=== PATIENT | female | born 2005 | race Caucasian/White ===

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

== ENCOUNTER 2024-03-18 13:45 | Inpatient (IN) | payer OTHER ==
[~2024-03-18] VITALS: Ht 157.5 cm; Wt 68.9 kg
[2024-03-24] VITALS (9 sets, daily range): BP systolic 114–139; BP diastolic 60–84
[2024-03-24] MEDS ORDERED: RINGERS SOLUTION,LACTATED 1,000 ML IV SCH (13:15)
[2024-03-24] MEDS ORDERED: PRENATAL 19 CH1 EACH PO (13:43)
[2024-03-24] MEDS ORDERED: OXYTOCIN 500 ML IV ONE (13:45)
[2024-03-24 14:05] LABS: HEMATOCRIT 35.5 % (36.0-45.00); HEMOGLOBIN 11.8 g/dL (12.0-15.00); MEAN CORPUSCULAR HEMOGLOBIN 29.2 pg (27.00-32.0); MEAN CORPUSCULAR HGB CONC 33.2 g/dl (32.0-36.0); PLATELET COUNT 337 K/uL (150-450); RED BLOOD COUNT 4.03 M/uL (4.00-6.00); RED CELL DISTRIBUTION WIDTH 14.7 % (11.5-14.5)
[2024-03-24] MEDS ORDERED: ERYTHROMYCIN BASE OPHT 1GM EACH TUBE OP ONE ×2 (14:39→18:15)
[2024-03-24] MEDS ORDERED: OXYTOCIN 20 UNITS/1000ML RL PIGGYBAG IV ONE (14:40)
[2024-03-24] MEDS ORDERED: CHLORHEXIDINE GLUCONATE 120 ML BOTTLE TOP ONE ×2 (14:40→18:15)
[2024-03-24] MEDS ORDERED: LIDOCAINE HCL 1% 10ML VIAL ONE (14:40)
[2024-03-24 14:46] LABS: BILIRUBIN TOTAL 0.54 mg/dL (0.3-1.2); CALCIUM 9.7 mg/dL (8.5-10.1); CREATININE SERUM 0.61 mg/dL (0.55-1.02); GFR 126.35; GLOBULINA 3.8 G/DL (2.4-3.5); INR < 0.93; PARTIAL THROMBOPLASTIN TIME 26.2 SECONDS (22.0-34.0); POTASSIUM 4.27 mEq/L (3.5-5.1); PROTHROMBIN TIME 10.2 SECONDS (9.0-11.5); TOTAL PROTEIN 6.8 gm/dL (6.4-8.2)
[2024-03-24] MEDS ORDERED: OxyCODONE HCL/APAP UD (PERCOCET) PO PRN (17:00)
[2024-03-24] MEDS ORDERED: IBUprofen 400 MG TABLET PO PRN (17:00)
[2024-03-24] MEDS ORDERED: OXYTOCIN 1,000 ML IV SCH (17:00)
[2024-03-24] MEDS ORDERED: LIDOCAINE HCL 1% 10ML VIAL PERCUT ONE (18:15)
[2024-03-25 01:18] VITALS: BP 107/68
[2024-03-25 08:42] VITALS: BP 123/75
[2024-03-25 15:47] VITALS: BP 104/65
[2024-03-25 23:32] VITALS: BP 95/54
[2024-03-26 04:53] VITALS: BP 98/58
== END 2024-03-26 11:49 | disposition home or self-care (01) | DRG 807 ==
LOC: LDR 03-24 13:02 → OB/GYN 03-24 13:02 → SURG 03-24 13:45 → OB/GYN 03-24 17:02
PROVIDERS: Obstetrics & Gynecology; ADMIT Obstetrics & Gynecology; ATTEND Obstetrics & Gynecology
PROC: 10E0XZZ Delivery of Products of Conception, External Approach (ICD-10-PCS; principal; 2024-03-24)
PROC: 0UQG7ZZ Repair Vagina, Via Natural or Artificial Opening (ICD-10-PCS; 2024-03-24)
PROC: 4A1HXCZ Monitoring of Products of Conception, Cardiac Rate, External Approach (ICD-10-PCS; 2024-03-24)
DX: O71.4 Obstetric high vaginal laceration alone (principal); Z37.0 Single live birth; Z3A.40 40 weeks gestation of pregnancy

== ENCOUNTER → 2024-03-19 | Outpatient (CLI) | payer OTHER | END | disposition home or self-care (01) | LOC: NST 14:35 | PROVIDERS: ATTEND Obstetrics & Gynecology Maternal & Fetal Medicine | DX: Z34.83 Encounter for supervision of other normal pregnancy, third trimester (principal) ==

== ENCOUNTER 2024-03-23 12:20 | Outpatient (CLI) | payer OTHER ==
[2024-03-24] MEDS ORDERED: PRENATAL 19 CH1 EACH PO (13:43)
== END 2024-03-23 13:12 | disposition home or self-care (01) ==
LOC: NST 12:20
PROVIDERS: ATTEND Obstetrics & Gynecology Maternal & Fetal Medicine
DX: Z3A.39 39 weeks gestation of pregnancy (principal)

== ENCOUNTER 2025-01-27 15:08 | Outpatient (CLI) | payer OTHER ==
[~2025-01-27 15:08] MED LIST: PRENATAL 19 CH1 EACH PO
== END 2025-01-27 15:10 | disposition home or self-care (01) ==
LOC: PRENATAL 15:08
PROVIDERS: ATTEND Obstetrics & Gynecology Maternal & Fetal Medicine
DX: O44.02 Complete placenta previa NOS or without hemorrhage, second trimester (principal); Z3A.22 22 weeks gestation of pregnancy